=== PATIENT | male | born 1980 | race Caucasian/White ===

== ENCOUNTER 2017-02-21 19:46 | Emergency (ER) | payer BC ==
[~2017-02-21] VITALS: Ht 177.8 cm; Wt 98.2 kg
[2017-02-21 19:49] VITALS: TEMP 37; Ht 177.8 cm; Wt 98.2 kg
[2017-02-21] MEDS ORDERED: XYLOCAINE 1%/SOD BICARB 20 ML VIAL INFIL ONE (20:00)
[2017-02-21] MEDS ORDERED: BUPIVACAINE 0.5 % 5 MG/1 ML MPF 30ML VIAL INFIL ONE (20:00)
--- NOTE | 2017-02-21 20:28 | EMERGENCY ROOM VISIT NOTE ---
ED Visit Note First contact with patient: 19:54 CHIEF COMPLAINT: Left 3rd toe laceration HISTORY OF PRESENT ILLNESS: This 36-year-old male patient presents to the emergency department approximately 2 hours after cutting the left third toe on a steel pipe which was sticking up out of the ground. Patient states he was walking, wearing sandals, when his wrench toe hit a steel pipe, which had a sharp edge to it. Patient states it felt as if he stubbed his toe. Patient was just seen at urgent care, however due to the location of the injury in proximity to the nail, urgent care recommended patient seek care in the emergency department in case he needed the toenail removed. The bleeding has stopped. Denies weakness or numbness of the toe. The patient has full range of motion of the toe. The patient rates the pain as throbbing and 2/10. The patient denies any other injuries. The patient's tetanus shot is up to date. REVIEW OF SYSTEMS: A 6 system review of systems was completed with positives and pertinent negatives listed in the HPI. ALLERGIES: None MEDICATIONS: None PMH: Ocular cancer SOCIAL HISTORY: Patient lives locally with his family. He denies tobacco, alcohol, drug use. PHYSICAL EXAM: Vital Signs: Reviewed Nurse's notes, vital signs stable. GENERAL : 36-year-old male, in no acute distress, well developed, well nourished. SKIN : There is a 0.5 cm long laceration on the dorsal aspect of the third toe, just proximal to the nail, the nail from the nailbed slightly. There is no damage to the nail specifically. There is no foreign material in the wound and it looks clean. There is no active bleeding. No deep structures such as tendons, bones, or significant blood vessels are seen in the base of the wound. Extension and flexion of the toe is full and strong. Full range of motion of the ankle and other toes. Capillary refill less than 2 seconds. Normal sensation to light and sharp touch. EMERGENCY DEPARTMENT COURSE: I examined the patient. Verbal consent was obtained to perform the procedure. Using sterile technique the wound was cleansed with Betadine. 2 ml of 1% buffered lidocaine with 0.5% bupivocaine was used to perform a digital block to anesthetize the patient. The area was sterilely draped. Once the patient was anesthetized, the wound was copiously irrigated under pressure with sterile saline. The wound was explored and there were no deep structures injured. The laceration was repaired using 2 simple interrupted 4-0 nylon sutures through the nail, tacking the nail back to the toe. The patient tolerated the procedure well. Hemostasis was achieved. The area was cleaned with sterile saline and dressed with bacitracin ointment and bandage. The patient was discharged home in good condition. DIAGNOSIS: Toe laceration DIFFERENTIAL DIAGNOSIS: Toe laceration below the nail, nailbed laceration, toe fracture, toe contusion, and others. DISCHARGE INSTRUCTIONS & TREATMENT: Cephalexin(Keflex) 500mg: Take one pill four times daily for 10 days for your skin infection. All antibiotics can cause diarrhea. If this occurs and you feel worse or it does not resolve in 1-2 days follow up with your doctor or return to the Emergency Department as this could be signs of serious underlying problems. Any medication can cause an allergic reaction, stop the pills immediately and return to the ER for rash, hives, breathing difficulties, or swelling. You have received 2 sutures on your toe, through the toenail. These sutures are NOT dissolvable and WILL need to be removed by a health care provider in 12-14 days. You can return to the Emergency Department or contact your Primary Care Provider to have the sutures removed. Proper wound care is essential for adequate wound healing and infection prevention. You can shower and clean the wound with soap and water. Do not scour over the wound, pat dry with a towel. Do not submerse the wound (i.e. bathe or dish wash) until the sutures have been removed. You can use an antibiotic ointment with a dressing over the wound for the next 3-4 days. After this time you may leave the wound dry and open to the air. If crust develops over the wound you can use a Q-tip to apply a 1:1 peroxide:water solution to clean the wound. Look for signs of infection of the wound including: increased pain, swelling, foul discharge, streaking, or increased temperature. If any of these are noticed you should return to the Emergency Department for further assessment and treatment. As with any laceration you may have received nerve damage to the surrounding tissues. This damage may or may not be permanent. You should keep the area covered with sunscreen for the first 6 months to 1 year when at risk for exposure to help minimize scarring. You can also use scar reducing creams or Vitamin E oil to help minimize scarring. For pain control, you can use the following [id number]-[id number] medicines (if >12 yo): - Regular strength (325mg/tab) Tylenol (acetaminophen) 2 tabs every 4-6 hours as needed. Do not exceed 12 tablets in a 24 hour period. Avoid taking more than 4 grams (4000 mg) of Tylenol per day. This includes any other sources of acetaminophen you may take on a regular basis. - Regular strength (200 mg/tab) Advil (ibuprofen) 1-2 tabs every 4-6 hours as needed. Do not exceed a dose of 3200 mg per day. Return to the emergency department if your symptoms worsen despite treatment course outlined above. Current/Historical Medications No Active Prescriptions or Reported Meds Allergies Coded Allergies: No Known Allergies (Unverified , 02/21/17) Vital Signs Date Time Temp Pulse Resp B/P (MAP) Pulse Ox O2 Delivery O2 Flow Rate FiO2 02/21/17 19:49 37.0 72 18 138/94 95 Room Air Departure Information Impression Primary Impression: Laceration of toe of left foot with damage to nail Dispostion Home / Self-Care Condition GOOD Prescriptions Cephalexin Monohydrate (Keflex) 500 Mg Cap 500 MG PO QID for 10 Days, #40 CAP Prov: Wilma Robles PA-C 02/21/17 Referrals No Doctor, Assigned (PCP) Patient Instructions My [facility] Additional Instructions Cephalexin(Keflex) 500mg: Take one pill four times daily for 10 days for your skin infection. All antibiotics can cause diarrhea. If this occurs and you feel worse or it does not resolve in 1-2 days follow up with your doctor or return to the Emergency Department as this could be signs of serious underlying problems. Any medication can cause an allergic reaction, stop the pills immediately and return to the ER for rash, hives, breathing difficulties, or swelling. You have received 2 sutures on your toe, through the toenail. These sutures are NOT dissolvable and WILL need to be removed by a health care provider in 12-14 days. You can return to the Emergency Department or contact your Primary Care Provider to have the sutures removed. Proper wound care is essential for adequate wound healing and infection prevention. You can shower and clean the wound with soap and water. Do not scour over the wound, pat dry with a towel. Do not submerse the wound (i.e. bathe or dish wash) until the sutures have been removed. You can use an antibiotic ointment with a dressing over the wound for the next 3-4 days. After this time you may leave the wound dry and open to the air. If crust develops over the wound you can use a Q-tip to apply a 1:1 peroxide:water solution to clean the wound. Look for signs of infection of the wound including: increased pain, swelling, foul discharge, streaking, or increased temperature. If any of these are noticed you should return to the Emergency Department for further assessment and treatment. As with any laceration you may have received nerve damage to the surrounding tissues. This damage may or may not be permanent. You should keep the area covered with sunscreen for the first 6 months to 1 year when at risk for exposure to help minimize scarring. You can also use scar reducing creams or Vitamin E oil to help minimize scarring. For pain control, you can use the following [id number]-wxkjnwp medicines (if >12 yo): - Regular strength (325mg/tab) Tylenol (acetaminophen) 2 tabs every 4-6 hours as needed. Do not exceed 12 tablets in a 24 hour period. Avoid taking more than 4 grams (4000 mg) of Tylenol per day. This includes any other sources of acetaminophen you may take on a regular basis. - Regular strength (200 mg/tab) Advil (ibuprofen) 1-2 tabs every 4-6 hours as needed. Do not exceed a dose of 3200 mg per day. Return to the emergency department if your symptoms worsen despite treatment course outlined above. Problem Qualifiers Primary Impression: Laceration of toe of left foot with damage to nail Encounter type: initial encounter Toe: lesser toe Foreign body presence: without foreign body Qualified Codes: S91.215A - Laceration without foreign body of left lesser toe(s) with damage to nail, initial encounter
[2017-02-21] MEDS ORDERED: CEPH500C PO (20:52)
[2017-02-21 20:54] VITALS: BP 130/94; PULSE 67; O2SAT 95
[2017-02-21] MEDS ORDERED: CEPHALEXIN 500MG HOME PACK 1 EA BTL PO ONE (21:00)
== END 2017-02-21 21:00 | disposition home or self-care (01) ==
LOC: C.EDB 19:47 → C.EDD 21:00
DX: S91.215A Laceration without foreign body of left lesser toe(s) with damage to nail, initial encounter (principal); W22.8XXA Striking against or struck by other objects, initial encounter; Z85.9 Personal history of malignant neoplasm, unspecified

== ENCOUNTER 2017-06-07 16:31 | Emergency (ER) | payer BC ==
[~2017-06-07] VITALS: Ht 177.8 cm; Wt 81.9 kg
[2017-06-07 16:42] VITALS: Ht 177.8 cm; Wt 81.9 kg
[2017-06-07] MEDS ORDERED: SODIUM CHLORIDE 0.9% 1000ML 1,000 ML IV STA (17:38)
[2017-06-07 17:55] LABS: URINE APPEARANCE CLEAR (CLEAR); URINE BILIRUBIN NEG (NEG); URINE COLOR YELLOW; URINE NITRITE NEG (NEG); URINE PH 6.5 (4.5-7.5); UROBILINOGEN NEG (NEG); ZZUR CULT IF INDIC CLEAN CATCH NO
[2017-06-07 17:56] LABS: BASO % 0.5 %; BASO ABS # 0.02 K/uL (0-0.2); COMPLETE YES; HEMATOCRIT 41.5 % (42-52); IG% 0.2 %; LYMPH % 9.7 %; LYMPH ABS # 0.42 K/uL (1.2-3.4); MEAN CELL VOLUME 81.9 fL (80-100); MEAN CORPUSCULAR HEMOGLOBIN 29.2 pg (25-34); MEAN CORPUSCULAR HGB CONC 35.7 g/dl (32-36); MEAN PLATELET VOLUME 10.7 fL (7.4-10.4); MONO % 8.1 %; NEUT % 81.5 %; PLATELET COUNT 136 K/uL (130-400); RED BLOOD COUNT 5.07 M/uL (4.7-6.1); WHITE BLOOD COUNT 4.33 K/uL (4.8-10.8)
[2017-06-07 17:57] LABS: MANUAL MICROSCOPIC REQUIRED? NO; REVIEW REQ? NO
[2017-06-07 18:10] LABS: ALT/SGPT 18 U/L (12-78); BLOOD UREA NITROGEN 11 mg/dl (7-18); BUN/CREATININE RATIO 8.9 (10-20); CALCIUM 8.8 mg/dl (8.5-10.1); CARBON DIOXIDE 25 mmol/L (21-32); CHLORIDE 103 mmol/L (98-107); GLUCOSE 102 mg/dl (70-99); POTASSIUM 3.8 mmol/L (3.5-5.1); SODIUM 136 mmol/L (136-145)
[2017-06-07 18:14] LABS: ALKALINE PHOSPHATASE 83 U/L (45-117); AST/SGOT 37 U/L (15-37)
[2017-06-07 18:40] LABS: LYME DISEASE AB IGG NEG (NEG); LYME DISEASE AB IGM NEG (NEG)
[2017-06-07 19:13] VITALS: TEMP 37.5
--- NOTE | 2017-06-07 19:16 | DIAGNOSTIC IMAGING REPORT ---
CHEST 2 VIEWS ROUTINE CLINICAL HISTORY: 36 years-old Male presenting with fever, chest tightness. TECHNIQUE: PA and lateral views of the chest were obtained. COMPARISON: None. FINDINGS: Cardiomediastinal silhouette normal. Lungs and pleural spaces clear. Osseous structures normal. Upper abdomen normal. IMPRESSION: 1. No acute cardiopulmonary disease. Electronically signed by: Fabrizio José M.D. 06/07/2017 7:14 PM Dictated Date/Time: 06/07/2017 7:12 PM
--- NOTE | 2017-06-07 19:28 | EMERGENCY ROOM VISIT NOTE ---
History First contact with patient: 17:24 Chief Complaint: FEVER Stated Complaint: FEVER/CHEST PAIN History of Present Illness The patient is a 36 year old male who presents to the Emergency Room with complaints of a fever. The patient states that he has had a fever for the past 2 days. His highest temperature was 103F today. He reports that he has had a heavy feeling in the center of his chest. He states it is a slight pain. He reports he has been fatigued and his urine has been dark in color. He has been urinating slightly more frequently than usual due to increased fluid intake. The patient denies any other symptoms. He denies any cough, shortness of breath , sore throat, earaches, abdominal pain, nausea, vomiting, or changes in bowel movements. He denies any sick contacts. He has been taking Tylenol and ibuprofen with good relief of his fevers. He denies any recent tick bites. 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 He follows with cardiology yearly for this and recently had a normal echo. Review of Systems A complete 10 point review of systems was reviewed with the patient with pertinent positives and negatives as per history of present illness. All else were negative. Social History Smoking Status: Never Smoker Current/Historical Medications No Active Prescriptions or Reported Meds Physical Exam Vital Signs Date Time Temp Pulse Resp B/P (MAP) Pulse Ox O2 Delivery O2 Flow Rate FiO2 06/07/17 19:46 77 18 148/90 99 06/07/17 19:13 37.5 72 18 146/91 98 Room Air 06/07/17 19:07 72 06/07/17 18:35 76 18 131/75 98 Room Air 06/07/17 16:42 37.1 98 18 140/93 96 Room Air Physical Exam VITALS: Vitals are noted on the nurse's note and reviewed by myself. Vital signs stable. GENERAL: This is a 36-year-old male, in no acute distress, nondiaphoretic, well- developed well-nourished. SKIN: The skin was without rashes. EARS: External auditory canals clear, tympanic membranes pearly mcmullen without erythema or effusion bilaterally. EYES: Pupils equal round and reactive to light and accommodation. Conjunctivae without injection, sclerae without icterus. Extraocular movements intact. NOSE: Patent, turbinates without inflammation or discharge. No sinus tenderness. MOUTH: Mucous membranes moist. Tonsils are not enlarged. Pharynx without erythema or exudate. NECK: Supple without nuchal rigidity. No lymphadenopathy. HEART: Regular rate and rhythm without murmurs gallops or rubs. LUNGS: Clear to auscultation bilaterally without wheezes, rales or rhonchi. ABDOMEN: Positive bowel sounds x 4. Soft, nontender to palpation. NEURO: Patient was alert and oriented to person place and time. Medical Decision & Procedures ER Provider Diagnostic Interpretation: CHEST 2 VIEWS ROUTINE CLINICAL HISTORY: 36 years-old Male presenting with fever, chest tightness. TECHNIQUE: PA and lateral views of the chest were obtained. COMPARISON: None. FINDINGS: Cardiomediastinal silhouette normal. Lungs and pleural spaces clear. Osseous structures normal. Upper abdomen normal. IMPRESSION: 1. No acute cardiopulmonary disease. Laboratory Results 06/07/17 17:30 Red Blood Count 5.07, Mean Corpuscular Volume 81.9, Mean Corpuscular Hemoglobin 29.2, Mean Corpuscular Hemoglobin Concent 35.7, Mean Platelet Volume 10.7, Neutrophils (%) (Auto) 81.5, Lymphocytes (%) (Auto) 9.7, Monocytes (%) (Auto) 8.1, Eosinophils (%) (Auto) 0.0, Basophils (%) (Auto) 0.5, Neutrophils # (Auto) 3.53, Lymphocytes # (Auto) 0.42, Monocytes # (Auto) 0.35, Eosinophils # (Auto) 0.00, Basophils # (Auto) 0.02 06/07/17 17:30 Test 06/07/17 17:30 06/07/17 17:45 06/07/17 17:54 White Blood Count 4.33 K/uL (4.8-10.8) Red Blood Count 5.07 M/uL (4.7-6.1) Hemoglobin 14.8 g/dL (14.0-18.0) Hematocrit 41.5 % (42-52) Mean Corpuscular Volume 81.9 fL (80-100) Mean Corpuscular Hemoglobin 29.2 pg (25-34) Mean Corpuscular Hemoglobin Concent 35.7 g/dl (32-36) Platelet Count 136 K/uL (130-400) Mean Platelet Volume 10.7 fL (7.4-10.4) Neutrophils (%) (Auto) 81.5 % Lymphocytes (%) (Auto) 9.7 % Monocytes (%) (Auto) 8.1 % Eosinophils (%) (Auto) 0.0 % Basophils (%) (Auto) 0.5 % Neutrophils # (Auto) 3.53 K/uL (1.4-6.5) Lymphocytes # (Auto) 0.42 K/uL (1.2-3.4) Monocytes # (Auto) 0.35 K/uL (0.11-0.59) Eosinophils # (Auto) 0.00 K/uL (0-0.5) Basophils # (Auto) 0.02 K/uL (0-0.2) RDW Standard Deviation 38.8 fL (36.4-46.3) RDW Coefficient of Variation 12.9 % (11.5-14.5) Immature Granulocyte % (Auto) 0.2 % Immature Granulocyte # (Auto) 0.01 K/uL (0.00-0.02) Anion Gap 9.0 mmol/L (3-11) Est Creatinine Clear Calc Drug Dose 86.2 ml/min Estimated GFR () 88.4 Estimated GFR (Non- 76.3 BUN/Creatinine Ratio 8.9 (10-20) Calcium Level 8.8 mg/dl (8.5-10.1) Total Bilirubin 1.1 mg/dl (0.2-1) Aspartate Amino Transf (AST/SGOT) 37 U/L (15-37) Alanine Aminotransferase (ALT/SGPT) 18 U/L (12-78) Alkaline Phosphatase 83 U/L (45-117) Total Creatine Kinase 78 U/L (39-308) Troponin I < 0.015 ng/ml (0-0.045) Total Protein 7.9 gm/dl (6.4-8.2) Albumin 4.0 gm/dl (3.4-5.0) Globulin 3.9 gm/dl (2.5-4.0) Albumin/Globulin Ratio 1.0 (0.9-2) Lyme Disease IgG Antibody NEG (NEG) Lyme Disease IgM Antibody NEG (NEG) Monoscreen NEG (NEG) Urine Color YELLOW Urine Appearance CLEAR (CLEAR) Urine pH 6.5 (4.5-7.5) Urine Specific [place] 1.020 (1.000-1.030) Urine Protein NEG (NEG) Urine Glucose (UA) NEG (NEG) Urine Ketones NEG (NEG) Urine Occult Blood NEG (NEG) Urine Nitrite NEG (NEG) Urine Bilirubin NEG (NEG) Urine Urobilinogen NEG (NEG) Urine Leukocyte Esterase NEG (NEG) Influenza Type A Antigen Neg for Influ A (NEG) Influenza Type B Antigen Neg for Influ B (NEG) Medications Administered Medications (Trade) Dose Ordered Sig/Ever Route Start Time Stop Time Status Last Admin Dose Admin Sodium Chloride 1,000 ml @ 999 mls/hr Q1H1M STAT IV 06/07/17 17:38 06/07/17 18:38 DC 06/07/17 17:58 999 MLS/HR ED Course The patient was evaluated as above. Labs were drawn and IV access was obtained. Patient was medicated with 1 L normal saline solution. Patient was reevaluated and findings were discussed. Discharge instructions were reviewed with the patient. The patient verbalized understanding of my assessment and treatment plan and was discharged home in good condition. Medical Decision Differential diagnosis includes influenza, mononucleosis, Lyme disease, viral illness, pneumonia, strep pharyngitis, pericarditis, among others. The patient is a 36-year-old male who presents today complaining of a fever. The patient does not have any significant symptoms. He does complain of some mild chest tightness. EKG shows a normal sinus rhythm with no ischemic findings. Labs revealed a very mild leukopenia and minimal elevation of bilirubin. Monospot, Lyme serology and influenza testing was all negative. Chest x-ray was not evident of pneumonia. Patient was treated with IV fluids. Vital signs were within normal limits. Patient is afebrile here and it seems that his fever has been well-controlled with Tylenol and ibuprofen. I feel that his workup likely represents a viral illness. He was advised to continue conservative treatments at home and follow-up with his primary care provider as needed. Based on the patient's presentation and work up, I feel the patient is stable for outpatient treatment. The patient was educated to return to the emergency department for any worsening of their current condition or new/concerning symptoms. He will follow up with his PCP. Medication Reconcilliation Current Medication List: was personally reviewed by me Blood Pressure Screening Patient's blood pressure: Normal blood pressure Impression Primary Impression: Acute febrile illness Departure Information Dispostion Home / Self-Care Condition GOOD Prescriptions No Active Prescriptions or Reported Meds Referrals Lori Hankins M.D. (PCP) Patient Instructions My [facility] Additional Instructions For pain/fever control, you can use the following [id number] medicines ( if >12 yo): - Regular strength (325mg/tab) Tylenol (acetaminophen) 2 tabs every 4-6 hours as needed. Do not exceed 12 tablets in a 24 hour period. Avoid taking more than 4 grams (4000 mg) of Tylenol per day. This includes any other sources of acetaminophen you may take on a regular basis. - Regular strength (200 mg/tab) Advil (ibuprofen) 3-4 tabs every 4-6 hours as needed. Do not exceed a dose of 3200 mg per day. Rest and drink plenty of fluids. Follow-up with your primary care provider this week. Return to the emergency department with any neck stiffness, vomiting, abdominal pain, or any worsening or new/concerning symptoms.
[2017-06-07 19:46] VITALS: BP 148/90; PULSE 77; O2SAT 99
== END 2017-06-07 19:50 | disposition home or self-care (01) ==
LOC: C.EDB 16:32 → C.EDA 19:50
DX: R50.9 Fever, unspecified (principal); Z85.820 Personal history of malignant melanoma of skin

== ENCOUNTER 2022-02-27 08:26 | Inpatient (IN) ==
[2022-02-27] MEDS ORDERED: ONDANSETRON INJ 2 MG/ML 2 ML VIAL IV STA (08:46)
[2022-02-27] MEDS: HYDROmorphone INJ 0.5 MG/0.5 ML SYR IV PRN ×4 (08:59→20:06)
--- NOTE | 2022-02-27 09:13 | Emergency Department Note ---
Impression & Plan Intractable back pain, Sciatic leg pain ED Provider Note INFORMANT: Patient and ED PROVIDER(S): Neo Turner MD CHIEF COMPLAINT: Back pain PLAN: Disposition: Admitted Condition: Good Outpatient prescription management: none Referral: None MEDICAL DECISION MAKING: Patient presented because of worsening back pain. He is scheduled for surgery tomorrow. An IV was established. Blood work was obtained. This was unremarkable. Patient was treated with IV Dilaudid and Zofran. He did note over 50% reduction in pain on reassessment. I did consult with his surgeon, Dr. Santiago. He is aware of the patient's problem and will admit him. I discussed if he needed any additional imaging and he did not ask for any. COVID testing was performed for admission in the standard fashion. Patient was informed. He was admitted for further management. Triage Nursing notes reviewed and agree them. Vital Signs: reviewed and remarkable for hypertension Differential diagnosis: Musculoskeletal, disc herniation, fracture, metastatic disease, cord compression, discitis, sciatica, cauda equina, infection, aortic disease, renal colic, gastrointestinal, as well as other pathologies. Diagnostics interpreted by me: ECG: none Cardiac Monitoring: Cardiac monitoring ordered by me: The patient was placed on continuous cardiac monitoring and observed. It revealed a normal sinus rhythm at 66 beats per minute without ectopy or evidence of dysrhythmia. Imaging studies: Deferred as above. HPI: The patient is a 41 year old male who presents to the Emergency Room with complaints of severe low back pain. Patient has a known herniated disc on the left side at L5-S1. He is to have surgery tomorrow by Dr. Santiago. He notes worsening over the last [address] Santiago and despite using his tramadol and Percocet at home is having severe 12 out of 10 pain. Pain is worse with movement or lifting the leg. He also feels more weak. Patient also notes having some numbness that has spread to the right proximal thigh. Pt denies trauma, LOC, headache, neck pain, fevers, chills, malaise, night sweats, weight loss, history of malignancy, chest pain, breathing difficulties, abdominal pain, saddle paresthesias, bowel or bladder dysfunction, urinary symptoms, or other complaints. ROS: See above HPI for pertinent positives & negatives. A total of 10 systems reviewed and were otherwise negative. PAST MEDICAL HISTORY:See Below , herniated disc PAST SURGICAL HISTORY:See Below, FAMILY HISTORY:See Below SOCIAL HISTORY:See Below, HOME MEDICATIONS:See Below ALLERGIES:See Below VITALS:See Below PHYSICAL EXAMINATION: GENERAL: Awake, alert, uncomfortable appearing, in no distress HENT: Normocephalic, atraumatic. Oropharynx unremarkable. EYES: Normal conjunctiva. Sclera non-icteric. NECK: Inspection normal. Non-tender. Supple. No nuchal rigidity. FROM. No masses. RESPIRATORY: Clear to auscultation. No wheezes. No rales. Normal respiratory effort. CARDIAC: Normal rate. Normal rhythm. No murmurs. No rubs. Extremities warm and well perfused. Pulses equal. No JVD. GI: Soft, non-distended. No tenderness to palpation. No rebound or guarding. No masses. RECTAL: Deferred. MUSCULOSKELETAL: Atraumatic. Chest examination reveals no tenderness. The back is symmetrical on inspection without obvious abnormality. There is no CVA tenderness to palpation. No joint edema. LOWER EXTREMITIES: Calves are equal size bilaterally and non-tender. No edema. No discoloration. NEURO: Normal sensorium. Subjective tingling in the right thigh but no other sensory or motor deficits noted. no saddle anesthesia. Positive left and right straight leg raise. SKIN: No rash or jaundice noted. Neo Turner MD Past Med/Surg History Medical History (Updated 02/27/22 @ 10:30 by Evaristo Santiago DO) Cancer Ocular s/p surgical intervention Radiation plaque therapy done (2011) Diverticula, colon History of COVID-19 Dx 05/2021 Symptoms at time: fatigue, cough > resolved Lower back pain Ventricular bigeminy Intermittent remote dx several years ago with no recent recurrence (incidental finding, asymptomatic), discharged from cardio- advised to f/u PRN, no current issues Surgical History H/O colonoscopy H/O endoscopy H/O vasectomy History of tonsillectomy and adenoidectomy Hx of appendectomy Family History Other Family history non-contributory Social History Smoking Status: Never smoker Second Hand Exposure: No; Hx Alcohol Use: No Hx Substance Use: No Preferred Language: [place] Communication Ability: Effective Helper/Driver Required: No Beliefs That Will Affect Care: None Current Living Situation: Spouse and Family Feels Safe at Home: Yes Assistive Devices: Glasses and Hearing Aid - Bilateral Allergies Allergies Allergy/AdvReac Type Severity Reaction Status Date / Time No Known Allergies Allergy Verified 02/13/22 13:43 Home Meds Home Medications Medication Instructions Recorded Confirmed lorazepam 0.5 mg tablet (Ativan) 0.5 mg PO DAILY PRN 03/14/19 02/27/22 tramadol 50 mg tablet 50 mg PO BID 02/13/22 02/27/22 gabapentin 300 mg capsule 300 mg PO TID 02/27/22 02/27/22 oxycodone-acetaminophen 5 mg-325 1 tab PO Q6 PRN 02/27/22 02/27/22 mg tablet Results & Data (ED) Vital Signs Vital Signs - 24 hr 02/27/22 08:30 02/27/22 08:52 02/27/22 10:27 Temperature 36.5 C Temperature Source Temporal Artery Scan Pulse Rate 92 H Pulse Rate [Right Finger] 66 67 Pulse Rhythm [Right Finger] Regular Regular Pulse Strength [Right Finger] Normal Normal Respiratory Rate 16 17 18 Respiratory Effort / Characteristics Non-Labored Spontaneous Non-Labored Spontaneous Respiratory Depth Normal Normal Respiratory Pattern Regular Blood Pressure 146/94 H Blood Pressure [Left Arm] 176/111 H Blood Pressure Mean 111 Blood Pressure Mean [Left Arm] 132 Blood Pressure Position [Left Arm] Lying Pulse Oximetry 98 99 97 Oxygen Delivery Method Room Air Room Air Room Air Sepsis Recent Fever Within 48 Hours No Sepsis New/Unexplained Change in Mental Status No Sepsis Action Taken by Nursing No Action Required Laboratory Data Result diagrams: 02/27/22 08:55 02/27/22 08:55 Lab Results 02/27/22 02/27/22 02/27/22 Range/Units 08:55 08:55 10:13 WBC 7.47 (4.8-10.8) K/uL RBC 5.34 (4.7-6.1) M/uL Hgb 16.1 (14.0-18.0) g/dL Hct 44.9 (42-52) % MCV 84.1 (80-100) fL MCH 30.1 (25-34) pg MCHC 35.9 (32-36) g/dL RDW Std Deviation 38.1 (36.4-46.3) fL RDW Coeff of John 12.5 (11.5-14.5) % Plt Count 233 (130-400) K/uL MPV 10.2 (7.4-10.4) fL Immature Gran % (Auto) 0.1 % Neut % (Auto) 75.1 % Lymph % (Auto) 16.6 % [place] % (Auto) 7.0 % Eos % (Auto) 0.9 % Baso % (Auto) 0.3 % Neut # (Auto) 5.61 (1.4-6.5) K/uL Lymph # (Auto) 1.24 (1.2-3.4) K/uL [place] # (Auto) 0.52 (0.11-0.59) K/uL Eos # (Auto) 0.07 (0-0.5) K/uL Baso # (Auto) 0.02 (0-0.2) K/uL Immature Gran # (Auto) 0.01 (0.00-0.02) K/uL Sodium 139 (136-145) mmol/L Potassium 3.8 (3.5-5.1) mmol/L Chloride 103 (98-107) mmol/L Carbon Dioxide 29 (21-32) mmol/L Anion Gap 7 (3-11) BUN 18 (6-23) mg/dl Creatinine 1.07 (0.6-1.4) mg/dl Est Cr Clr Drug Dosing 102.8 ml/min Est GFR ( Amer) 98.0 ml/min Est GFR (Non-Af Amer) 84.6 ml/min BUN/Creatinine Ratio 16.8 (10-20) Glucose 95 (70-99(Fasting)) mg/dl Calcium 9.5 (8.5-10.1) mg/dl Total Bilirubin 1.0 (0.2-1.0) mg/dl AST 15 (13-39) U/L ALT 6 L (7-52) U/L Alkaline Phosphatase 51 (34-104) U/L Total Protein 7.2 (6.0-8.3) gm/dl Albumin 4.5 (3.4-5.0) gm/dl Globulin 2.7 (2.5-4.0) gm/dl Albumin/Globulin Ratio 1.7 (0.9-2) SARS-CoV-2, RNA, NAAT NEGATIVE (NEGATIVE) Administered Medications Hydromorphone HCl (Hydromorphone Inj 0.5 Mg/0.5 Ml Syr) 0.5 mg IV Q15M PRN PRN Reason: Pain Stop: 03/13/22 08:45 Last Admin: 02/27/22 08:59 Dose: 0.5 mg Documented by: [id number] Discontinued Medications Ondansetron HCl (Ondansetron Inj 2 Mg/Ml 2 Ml Vial) 4 mg IV NOW STA Stop: 02/27/22 08:47 Last Admin: 02/27/22 08:59 Dose: 4 mg Documented by: [id number] Discharge Plan Visit Data Chief Complaint: Back Injury/Pain Stated Complaint: BACK PAIN ED Provider: Neo Turner Discharge Problem: Intractable back pain, Sciatic leg pain Forms Stand Alone Forms: [facility] Prescriptions Prescriptions: No Action lorazepam [Ativan] 0.5 mg Tablet 0.5 mg PO DAILY PRN (Reason: Anxiety) RF: 0 tramadol 50 mg Tablet 50 mg PO BID RF: 0 oxycodone-acetaminophen 5-325 mg tablet 1 tab PO Q6 PRN (Reason: Pain) RF: 0 gabapentin 300 mg capsule 300 mg PO TID RF: 0 Referrals Referrals: Lori Hankins MD [Primary Care Provider] -
[2022-02-27 09:29] LABS: Basophils # (auto) 0.02 K/uL (0-0.2); Basophils % (auto) 0.3 %; Eosinophils # (auto) 0.07 K/uL (0-0.5); Eosinophils % (auto) 0.9 %; Hematocrit (blood only) 44.9 % (42-52); Hemoglobin 16.1 g/dL (14.0-18.0); Immature Granulocytes # (auto) 0.01 K/uL (0.00-0.02); Immature Granulocytes % (auto) 0.1 %; Lymphocytes # (auto) 1.24 K/uL (1.2-3.4); Lymphocytes % (auto) 16.6 %; Mean Corpuscular Hemoglobin 30.1 pg (25-34); Mean Corpuscular Hgb Conc 35.9 g/dL (32-36); Mean Corpuscular Volume 84.1 fL (80-100); Mean Platelet Volume 10.2 fL (7.4-10.4); Monocytes # (auto) 0.52 K/uL (0.11-0.59); Neutrophils # (auto) 5.61 K/uL (1.4-6.5); Neutrophils % (auto) 75.1 %; Platelet Count 233 K/uL (130-400); RDW Coefficient of Variation 12.5 % (11.5-14.5); RDW Standard Deviation 38.1 fL (36.4-46.3); Red Blood Count 5.34 M/uL (4.7-6.1); White Blood Count 7.47 K/uL (4.8-10.8)
[2022-02-27 09:34] LABS: Albumin Globulin Ratio 1.7 (0.9-2); Albumin Level 4.5 gm/dl (3.4-5.0); BUN Creatinine Ratio 16.8 (10-20); Calcium 9.5 mg/dl (8.5-10.1); Creatinine Clr Calc Pharmacy 102.8 ml/min; Est GFR (Non-African American) 84.6 ml/min; Globulin 2.7 gm/dl (2.5-4.0); Potassium 3.8 mmol/L (3.5-5.1); Total Protein 7.2 gm/dl (6.0-8.3)
--- NOTE | 2022-02-27 10:32 | History & Physical Report ---
Date of Service February 27, 2022 Assessment & Plan (1) Lumbar disc herniation with radiculopathy: Plan: Assessment lumbar radiculopathy secondary to disc herniation and neuroforaminal disease. Plan at this time he is had a significant decline in status. I am recommending an urgent MRI of the lumbar spine particular in light of his urinary retention. He also presents with neurodeficit that has been progressive. I will make him n.p.o. after midnight for surgery. Surgery most likely would require lumbar decompression and fusion L5-S1. This would allow me to adequately address the neuroforaminal disease and neural compression from the disc herniation and retrolisthesis. Risk-benefit pros cons alternatives were outlined in detail with the patient. History of Present Illness Chief Complaint: Severe left leg pain with weakness Primary Care Provider: Lori Hankins MD This is a 41-year-old male that presents with marked decline in status over the past week. He does have known lumbar disc herniation and neuroforaminal disease at L5-S1 with a left-sided radiculopathy. He was potentially scheduled for jake olena. He states for the past week he has been unable to ambulate and is essentially been bedridden. Is been unable to work. Pain is described involving the bilateral buttocks radiating to the groin. Extensive left lower extremity to left lateral foot. He notes weakness with weightbearing and ambulation affecting left lower extremity. He describes urinary retention that has been present over the past week. He denies any significant trauma fall or event over the past several weeks. His pain is markedly uncontrolled at home. Allergies Allergy/AdvReac Type Severity Reaction Status Date / Time No Known Allergies Allergy Verified 02/13/22 13:43 Home Medications Medication Instructions Recorded Confirmed Type lorazepam 0.5 mg tablet (Ativan) 0.5 mg PO DAILY PRN 03/14/19 02/13/22 History gabapentin 300 mg tablet 300 mg PO TID PRN 02/13/22 02/13/22 History tramadol 50 mg tablet 50 mg PO BID 02/13/22 02/13/22 History Past Med/Surg History Medical History (Updated 02/27/22 @ 10:30 by Evaristo Santiago DO) Cancer Ocular s/p surgical intervention Radiation plaque therapy done (2011) Diverticula, colon History of COVID-19 Dx 05/2021 Symptoms at time: fatigue, cough > resolved Lower back pain Ventricular bigeminy Intermittent remote dx several years ago with no recent recurrence (incidental finding, asymptomatic), discharged from cardio- advised to f/u PRN, no current issues Surgical History H/O colonoscopy H/O endoscopy H/O vasectomy History of tonsillectomy and adenoidectomy Hx of appendectomy Family History Other Family history non-contributory Social History Smoking Status: Never smoker Second Hand Exposure: No; Hx Alcohol Use: No Hx Substance Use: No Preferred Language: Arabic Communication Ability: Effective Fur Blower Operator Required: No Beliefs That Will Affect Care: None Current Living Situation: Spouse and Family Feels Safe at Home: Yes Assistive Devices: Glasses and Hearing Aid - Bilateral Physical Exam Physical Exam: On exam is most comfortable in supine position. He does have sensory deficits to cold and light touch to the left lower extremity compared to the right. Is markedly positive straight leg raise on the left with a positive Lasegue's maneuver. There is contralateral straight leg raise on the right. He has a 4-/5 left plantar flexion dorsiflexion compared to 5 or 5 on the right. Quadriceps are symmetric. D10 reflexes diminished. Results & Data Results & Data ([facility]) Vital Signs (Past 12 Hours) Vital Signs Temp Pulse Pulse Resp BP BP Pulse Ox 02/27/22 08:52 66 17 176/111 H 99 02/27/22 08:30 36.5 C 92 H 16 146/94 H 98 Code Status & VTE Plan VTE Prophylaxis Plan VTE Prophylaxis will be ordered: Yes
--- NOTE | 2022-02-27 13:05 | Magnetic Resonance Report ---
MRI OF THE LUMBAR SPINE WITHOUT CONTRAST CLINICAL HISTORY: Left leg pain and weakness, urinary retention COMPARISON STUDY: No previous studies for comparison. TECHNIQUE: Utilizing a 1.5 Nelly magnet and dedicated coil, multiplanar, multiecho imaging of the levi mbar spine was performed without IV contrast. FINDINGS: For purposes of numbering on this exam, the L5-S1 disc space is assigned to axial image 28 of 30. Ali gnment of the lumbar spine is anatomic. Vertebral body heights are maintained. There is no marrow rep lacement. There is no intracanalicular mass or fluid collection. Conus terminates at the upper L1 lev el. Paravertebral soft tissues are unremarkable. Discogenic changes at the L5-S1 level are noted. L1-2: The central canal and neural foramen are patent. L2-3: The central canal and neural foramen are patent. L3-4: The central canal and neural foramen are patent. L4-5: There is mild desiccation of the disc. Central canal and neural foramen are patent. L5-S1: There is moderate disc space narrowing. Note is made of a 9 x 7 x 6 mm left paracentral disc e xtrusion which results in severe narrowing of the left lateral recess with posterior displacement of the descending left S1 nerve root. Moderate to severe narrowing of the left neural foramen is noted. There is mild narrowing of the right neural foramen. No central canal stenosis. IMPRESSION: 9 x 7 x 6 mm left paracentral disc extrusion at L5-S1 that results in severe narrowing of the left lateral recess with posterior displacement of the descending left S1 nerve root. This could be correlated with left S1 radiculopathy. In addition, moderate to severe narrowing of the left neur al foramen at this level. ACT 112: Negative or not required by law. Electronically signed by: Ken Escobar M.D. 02/27/2022 1:04 PM
[2022-02-27] MEDS ORDERED: ACETAMINOPHEN 500 MG TAB PO PRN (13:53)
[2022-02-27] MEDS ORDERED: ONDANSETRON INJ 2 MG/ML 2 ML VIAL IV PRN (13:53)
[2022-02-27] MEDS ORDERED: hydrOXYzine HCl 25 MG TAB PO PRN (13:53)
[2022-02-27] MEDS ORDERED: LORazepam 0.5 MG in SYRINGE 0.25 ML IV PRN (13:53)
[2022-02-27] MEDS ORDERED: ACETAMINOPHEN 1,000 MG/100 ML VIAL IV PRN (13:53)
[2022-02-27] MEDS ORDERED: oxyCODONE HCL IR 5 MG TAB (IMMEDIATE RELEASE) PO PRN (13:53)
[2022-02-27] MEDS ORDERED: traMADol HCL 50 MG TABLET PO PRN (13:53)
[2022-02-27] MEDS ORDERED: NALOXONE HCL 0.4 MG/1 ML VIAL/CARP IV PRN (13:53)
[2022-02-27] MEDS ORDERED: HYDROmorphone INJ 1 MG/ML SYRINGE IV PRN (13:53)
[2022-02-27] MEDS ORDERED: PROMETHAZINE HCL 12.5 MG in SODIUM CHLORIDE 0.9% 50 ML IV PRN (13:53)
[2022-02-27] MEDS ORDERED: ONDANSETRON 4 MG OD TAB PO PRN (13:53)
[2022-02-27] MEDS ORDERED: METOCLOPRAMIDE HCL INJ 5 MG/ML 2 ML VIAL IV PRN (13:53)
[2022-02-27] MEDS ORDERED: LORazepam 0.5 MG TAB PO PRN (13:53)
[2022-02-27] MEDS ORDERED: GABAPENTIN 300 MG CAP PO PRN (13:57)
[2022-02-27] MEDS: LACTATED RINGER'S 1,000 ML IV SCH (15:58)
[2022-02-27 21:07] LABS: Appearance Urine Clear (Clear); Bilirubin Urine Negative (Negative); Blood Urine Negative (Negative); Color Urine Yellow; Glucose Urine UA Negative (Negative); Ketones Urine Negative (Negative); Leukocyte Esterase Urine Negative (Negative); Nitrite Urine Negative (Negative); Protein Urine Negative (Negative); Specific Gravity Urine 1.013 (1.000-1.030); Urobilinogen Urine Negative (Negative)
[2022-02-28] MEDS: HYDROmorphone INJ 0.5 MG/0.5 ML SYR IV PRN ×5 (00:03→20:18)
[2022-02-28] MEDS: LACTATED RINGER'S 1,000 ML IV SCH ×4 (00:04→22:21)
[2022-02-28] MEDS ORDERED: ceFAZolin 2000MG 2,000 MG/15 ML SYR IV SCH (06:00)
--- NOTE | 2022-02-28 07:40 | History & Physical Bridge Note ---
Date of Service February 28, 2022 History & Physical Bridge Note I have examined the patient, reviewed the History & Physical and in the interval since the performance of the History & Physical I have noted the following changes of clinical significance: MRI of the lumbar spine demonstrates worsening of the disc herniation L5-S1 with severe neuroforaminal disease on the left. Again he would require aggressive facetectomy to adequately address the neural foraminal compression as well as ability to address the disc herniation. This would create iatrogenic instability and require fusion. In light of his neurologic decline and severe pain recommending emergent decompression fusion L5-S1.
[2022-02-28] MEDS ORDERED: ROCURONIUM BROMIDE 10 MG/ML 5 ML VIAL IV ONE ×2 (11:57)
[2022-02-28] MEDS ORDERED: PROPOFOL IV EMULSION 10 MG/ML 20 ML VIAL IV ONE (11:57)
[2022-02-28] MEDS ORDERED: ceFAZolin 2,000 MG/15 ML IV PUSH IV ONE (11:57)
[2022-02-28] MEDS ORDERED: NEOSTIGMINE METHYLSULFATE 1 MG/ML 10ML VIAL IM ONE (11:57)
[2022-02-28] MEDS ORDERED: MIDAZOLAM HCL 1 MG/ML 2ML VIAL IV ONE (11:57)
[2022-02-28] MEDS ORDERED: DEXAMETHASONE SOD INJ 4 MG/ML VIAL IV ONE (11:57)
[2022-02-28] MEDS ORDERED: ONDANSETRON INJ 2 MG/ML 2 ML VIAL IV ONE (11:57)
[2022-02-28] MEDS ORDERED: LIDOCAINE 2% 2 ML VIAL/AMP(20MG/ML) INFIL ONE (11:57)
[2022-02-28] MEDS ORDERED: HYDROmorphone INJ 2 MG/ML SYR/VIAL IV ONE (11:57)
[2022-02-28] MEDS ORDERED: GLYCOPYRROLATE 0.2 MG/ML VIAL IM ONE (11:57)
[2022-02-28] MEDS ORDERED: BUPIVACAINE/EPINEPHRINE 0.25% 1:200,000 30 ML VIAL ONE (12:54)
[2022-02-28] MEDS ORDERED: ceFAZolin 330 MG/ML 1 GM VIAL ONE (12:54)
[2022-02-28] MEDS ORDERED: ePHEDrine sulfate 50 MG/ML AMP IV PRN (13:28)
[2022-02-28] MEDS ORDERED: ATROPINE SULFATE 0.1 MG/ML 10ML SYR IV PRN (13:28)
[2022-02-28] MEDS ORDERED: ONDANSETRON INJ 2 MG/ML 2 ML VIAL IV PRN ×2 (13:28→16:16)
[2022-02-28] MEDS ORDERED: HYDROmorphone INJ 2 MG/ML SYR/VIAL IV PRN (13:28)
--- NOTE | 2022-02-28 13:28 | Anesthesiology Consultation ---
Date of Service February 28, 2022 Assessment & Plan Chart Review Chart Review: Acceptable Risk for Surgery and Patient NOT seen in Pre Admission Testing Consults Requested none ASA ASA2 Proposed Anesthesia Anesthesia Type: General Risk / Benefits Reviewed With: PT / POA / Parent / Guardian, Accepts Plan and Informed Consent Obtained History Surgery Operation Date: 02/28/22 11:55 Proposed Procedures p L5-S1 Decompression Fusion, Spinal Cord Monitoring - Evaristo Santiago, Height/Weight Height: 5 ft 10 in Weight: 94.7 kg Allergies Allergy/AdvReac Type Severity Reaction Status Date / Time No Known Allergies Allergy Verified 02/13/22 13:43 Medications Home Medications Medication Instructions Recorded Confirmed Last Taken lorazepam 0.5 mg tablet (Ativan) 0.5 mg PO DAILY PRN 03/14/19 02/27/22 Unknown tramadol 50 mg tablet 50 mg PO BID 02/13/22 02/27/22 02/27/22 04:30 gabapentin 300 mg capsule 300 mg PO TID 02/27/22 02/27/22 02/26/22 10:00 oxycodone-acetaminophen 5 mg-325 1 tab PO Q6 PRN 02/27/22 02/27/22 02/26/22 22:30 mg tablet Active Medications Generic Name Dose Route Start Last Admin Trade Name Freq PRN Reason Stop Dose Admin Acetaminophen 1,000 mg 02/27/22 13:53 02/28/22 01:55 Acetaminophen 500 Mg Tab PO 03/29/22 13:52 1,000 mg Q8H PRN Administration MILD Pain Scale 1,2,3 & Pre PT Hydromorphone HCl 0.5 mg 02/27/22 13:53 02/28/22 06:09 Hydromorphone Inj 0.5 Mg/0.5 Ml Syr IV 03/13/22 13:52 0.5 mg Q3H PRN Administration MOD pain (scale 4-6) & Pre PT Hydromorphone HCl 1 mg 02/27/22 13:53 02/28/22 09:29 Hydromorphone Inj 1 Mg/Ml Syringe IV 03/13/22 13:52 1 mg Q3H PRN Administration severe pain (scale 7-10) Cefazolin Sodium 2,000 mg in 15 mls @ 3.75 mls/min 02/28/22 06:00 02/28/22 13:08 Ancef 2000mg IV 03/01/22 05:59 3.75 mls/min PREOP MALCOLM Administration Protocol Lactated Ringer's 1,000 mls @ 100 mls/hr 02/27/22 13:53 02/28/22 09:29 Lr IV 03/29/22 13:52 100 mls/hr .Q10H MALCOLM Administration Lorazepam 0.5 mg 02/27/22 13:53 02/27/22 20:07 Lorazepam 0.5 Mg Tab PO 03/29/22 13:52 0.5 mg Q8H PRN Administration sedation/anxiety Ondansetron HCl 4 mg 02/27/22 13:53 02/28/22 09:33 Ondansetron Inj 2 Mg/Ml 2 Ml Vial IV 03/29/22 13:52 4 mg Q6H PRN Administration Nausea &/or Vomiting NPO Date Last Intake of Fluids: 02/27/22 Time Last Intake of Fluids: 00:00 Date Last Intake of Solids: 02/27/22 Time Last Intake of Solids: 18:00 Past Medical History Medical History (Updated 02/27/22 @ 10:30 by Evaristo Santiago DO) Cancer Ocular s/p surgical intervention Radiation plaque therapy done (2011) Diverticula, colon History of COVID-19 Dx 05/2021 Symptoms at time: fatigue, cough > resolved Lower back pain Ventricular bigeminy Intermittent remote dx several years ago with no recent recurrence (incidental finding, asymptomatic), discharged from cardio- advised to f/u PRN, no current issues Exercise / Class Metabolic Activity II 4-5 Yardwork/Stairs/Walk up hill Past Family History Family History Other Family history non-contributory Past Surgical History Surgical History H/O colonoscopy H/O endoscopy H/O vasectomy History of tonsillectomy and adenoidectomy Hx of appendectomy Past Anesthesia History No Hx of Anesthesia Complications and No Family Hx of Anesthesia Complications History of PONV No Hx of PONV and No Hx of Motion Sickness Social History Smoking Status: Never smoker Hx Alcohol Use: No Hx Substance Use: No substance use type: does not use Physical Exam Vital Signs Last Vital Signs Temp 37 C 02/28/22 10:56 Pulse 65 02/28/22 10:56 Resp 18 02/28/22 10:56 BP 147/96 H 02/28/22 10:56 Pulse Ox 99 02/28/22 10:56 ENMT Mouth: no dentition abnormality Thyromental Distance: > or= 3.5 Finger Breadths Mallampati Class: II Neck normal visual inspection Respiratory normal respiratory effort Auscultation: lungs clear to auscultation bilaterally Cardiovascular Rate/Rhythm: regular rate and regular rhythm Psychiatric Orientation: alert Testing Laboratory Results 02/27/22 08:55 02/27/22 08:55 Urine Color Yellow 02/27/22 20:50 Urine Appearance Clear (Clear) 02/27/22 20:50 Urine pH 6.0 (4.5-7.5) 02/27/22 20:50 Ur Specific [place] 1.013 (1.000-1.030) 02/27/22 20:50 Urine Protein Negative (Negative) 02/27/22 20:50 Urine Glucose (UA) Negative (Negative) 02/27/22 20:50 Urine Ketones Negative (Negative) 02/27/22 20:50 Urine Nitrite Negative (Negative) 02/27/22 20:50 Ur Leukocyte Esterase Negative (Negative) 02/27/22 20:50
[2022-02-28] MEDS ORDERED: FLOSEAL HEMOSTATIC MATRIX 10ML TOP ONE (13:48)
--- NOTE | 2022-02-28 15:02 | Operative Report ---
Post Operative Report Pre & Post Diagnosis Operation Date: 02/28/22 11:55 Pre-Op Diagnosis: Lumbar Disc Herniation with Radiculopathy Post-Op Diagnosis: Lumbar Disc Herniation with Radiculopathy I identified the patient and participated in the time-out.: Yes Procedure Operation Date: 02/28/22 11:55 Actual Procedures #1 lumbar decompression with bilateral medial facetectomies and foraminotomies L4-L5 L5-S1. #2 posterior spinal fusion L5-S1. #3 placement posterior instrumentation L5-S1. #4 interbody fusion L5-S1. #5 placement of Spira 14 x 26 mm cage at L5-S1. #6 placement locally harvested morselized autograft in the posterior gutters. #7 placement of I factor combined with V toss in interbody space and posterior lateral gutters. Surgeon Evaristo Santiago, DO Mechanical Pencils Assembler Cb Bond Estimated Blood Loss 150 Findings Consistent with Post-Op Diagnosis Specimens None Indications This is a 41-year-old male who presents with marked neurologic decline and evidence of worsening disc herniation and neuroforaminal disease. Subsequent is here for urgent decompression fusion. Description of Procedure Patient was met with identified informed consent obtained. Patient was then taken to the operative suite underwent intubation placed in a prone position the Ameya table top Vinod frame. All bony prominences well-padded eyes inspected to ensure no external pressure placed upon the. This point the lumbar spine was prepped and draped no sterile fashion. Sharp dissection with the assistance of Bovie cautery performed down to and exposing the lamina and transverse processes of L5 and the sacral ala. Bilaterally. From a caudal cephalad fashion complete laminectomy L5 partial laminectomy of L4 was performed including bilateral medial facetectomies and foraminotomies. Evidence of significant conjoined root on the left was noted. I identified free disc fragments within the axilla of the S1-S2 levels. The area was explored all fragments addressed. Pedicle screws were then placed in L5 and S1 levels bilaterally with assistance of fluoroscopy and I had to perform a complete facetectomy L5-S1 on the right to safely find a window for a transforaminal approach. Complete discectomy was then performed and the endplates curetted to subcortical bleeding bone. A 14 x 26 mm Spira cage filled with I factor was tapped in position. The rods were then compressed locked in final position bilaterally. The transverse processes of L5 and sacral ala burred to subcortical bleeding bone. I factor combined with V toss and locally harvested morselized autograft was then placed in the posterior gutters. 15 round DANIEL drain inserted. The incision was then closed with 1 Vicryl in the fascia 2-0 Vicryl subcutaneously and 4 Monocryl for final skin closure. Steri-Strip sterile dressings placed. Patient waken taken to PACU stable condition. Please note spinal cord monitoring was utilized at the procedure no changes noted. Lastly Cb Bond was present out the entire surgery involved in patient positioning complex portions of the surgery and fascial closure. I attest to the content of the Intraoperative Record and any orders documented therein. Any exceptions are noted below.
[2022-02-28] MEDS: fentaNYL citrate 100 MCG/2 ML VIAL IV PRN ×2 (15:23→15:36)
--- NOTE | 2022-02-28 15:38 | Fluoroscopy Report ---
FL lumbar spine 2-3V HISTORY: 41 years-old Male L5-S1 DECOMP/FUSION status post L5-S1 decompression COMPARISON: MRI lumbar spine 02/27/2022 TECHNIQUE: 2 spot fluoroscopic images of the lumbar spine were obtained utilizing 23.6 seconds fluoro scopy time FINDINGS: Status post laminectomy with posterior interbody marizol and screw fusion and discectomy at L5-S1. The marquez rdware appears intact. No acute fracture or unexpected opaque foreign body identified. IMPRESSION: Fluoroscopic assistance as above. ACT 112: Negative or not required by law. The above report was generated using voice recognition software. It may contain grammatical, syntax o r spelling errors. Electronically signed by: Leland Klein M.D. 02/28/2022 3:36 PM
--- NOTE | 2022-02-28 15:55 | Anesthesiology Progress Note ---
Date of Service February 28, 2022 Anesthesia Post Procedure Vital Signs Vital Signs: Temp Pulse Pulse Resp BP BP Pulse Ox 02/28/22 15:45 70 12 140/85 92 02/28/22 15:35 75 15 134/85 95 02/28/22 15:25 69 12 142/88 H 98 02/28/22 15:16 36.2 C L 89 14 151/95 H 95 02/28/22 10:56 37 C 65 18 147/96 H 99 02/28/22 07:26 36.7 C 58 L 16 128/81 94 02/27/22 21:14 36.9 C 62 20 150/88 H 98 Pain Intensity Back: Pain Intensity: 4 Transfer of Care Handoff Completed per policy Notes Mental Status: alert / awake / arousable Patient Amnestic to Procedure: Yes Nausea / Vomiting: adequately controlled Pain: adequately controlled Airway Patency, RR, SpO2: stable & adequate BP & HR: stable & adequate Hydration State: stable & adequate Anesthetic Complications: no major complications apparent
[2022-02-28] MEDS ORDERED: MAGNESIUM HYDROXIDE SUSP 30 ML UDC PO PRN (16:16)
[2022-02-28] MEDS ORDERED: LORazepam 0.5 MG TAB PO PRN (16:16)
[2022-02-28] MEDS ORDERED: PROMETHAZINE HCL 12.5 MG in SODIUM CHLORIDE 0.9% 50 ML IV PRN (16:16)
[2022-02-28] MEDS ORDERED: DO NOT ADMINISTER PNEUMOCOCCAL VACCINE PRN (16:16)
[2022-02-28] MEDS ORDERED: HYDROmorphone INJ 1 MG/ML SYRINGE IV PRN (16:16)
[2022-02-28] MEDS ORDERED: NALOXONE HCL 0.4 MG/1 ML VIAL/CARP IV PRN (16:16)
[2022-02-28] MEDS ORDERED: FAMOTIDINE 20 MG TAB PO PRN (16:16)
[2022-02-28] MEDS ORDERED: DO NOT ADMINISTER FLU VACCINE PRN (16:16)
[2022-02-28] MEDS ORDERED: hydrOXYzine HCl 25 MG TAB PO PRN (16:16)
[2022-02-28] MEDS ORDERED: SOD PHOSPHATE/SOD BIPHOSPHATE ENEMA 132 ML BTL PR PRN (16:16)
[2022-02-28] MEDS ORDERED: ACETAMINOPHEN 1,000 MG/100 ML VIAL IV PRN (16:16)
[2022-02-28] MEDS ORDERED: METOCLOPRAMIDE HCL INJ 5 MG/ML 2 ML VIAL IV PRN (16:16)
[2022-02-28] MEDS ORDERED: diphenhydrAMINE Capsule 25 MG CAP PO PRN (16:16)
[2022-02-28] MEDS ORDERED: ONDANSETRON 4 MG OD TAB PO PRN (16:16)
[2022-02-28] MEDS ORDERED: ALUMINUM/MAGNESIUM SUSP 30 ML UDC PO PRN (16:16)
[2022-02-28] MEDS ORDERED: bisacodyL 10 MG SUPP PR PRN (16:16)
[2022-02-28] MEDS ORDERED: LORazepam 0.5 MG in SYRINGE 0.25 ML IV PRN (16:16)
[2022-02-28] MEDS ORDERED: ACETAMINOPHEN 500 MG TAB PO PRN (16:16)
[2022-02-28] MEDS: GABAPENTIN 300 MG CAP PO SCH (21:22)
[2022-02-28] MEDS: ceFAZolin 2000MG 2,000 MG/15 ML SYR IV SCH (21:22)
[2022-02-28] MEDS: DOCUSATE SODIUM/SENNA 50/8.6MG TAB PO SCH (21:22)
[2022-03-01] MEDS: HYDROmorphone INJ 0.5 MG/0.5 ML SYR IV PRN ×3 (01:48→10:51)
[2022-03-01] MEDS: ceFAZolin 2000MG 2,000 MG/15 ML SYR IV SCH (04:37)
[2022-03-01] MEDS: POLYETHYLENE (MIRALAX) 17 GM PACK PO SCH ×5 (06:11→22:41)
[2022-03-01 07:33] LABS: Eosinophils # (auto) 0.03 K/uL (0-0.5); Eosinophils % (auto) 0.3 %; Hematocrit (blood only) 40.2 % (42-52); Immature Granulocytes # (auto) 0.02 K/uL (0.00-0.02); Immature Granulocytes % (auto) 0.2 %; Lymphocytes # (auto) 1.13 K/uL (1.2-3.4); Lymphocytes % (auto) 9.9 %; Mean Corpuscular Hemoglobin 28.9 pg (25-34); Mean Corpuscular Hgb Conc 34.8 g/dL (32-36); Mean Corpuscular Volume 82.9 fL (80-100); Mean Platelet Volume 10.5 fL (7.4-10.4); Monocytes # (auto) 0.82 K/uL (0.11-0.59); Monocytes % (auto) 7.2 %; Neutrophils # (auto) 9.37 K/uL (1.4-6.5); Neutrophils % (auto) 82.4 %; Platelet Count 233 K/uL (130-400); RDW Coefficient of Variation 12.6 % (11.5-14.5); RDW Standard Deviation 38.1 fL (36.4-46.3); Red Blood Count 4.85 M/uL (4.7-6.1); White Blood Count 11.37 K/uL (4.8-10.8)
[2022-03-01 07:49] LABS: BUN Creatinine Ratio 14.7 (10-20); Calcium 9.2 mg/dl (8.5-10.1); Creatinine Clr Calc Pharmacy 107.9 ml/min; Est GFR (African American) 103.9 ml/min; Est GFR (Non-African American) 89.6 ml/min; Potassium 4.2 mmol/L (3.5-5.1)
[2022-03-01] MEDS: GABAPENTIN 300 MG CAP PO SCH ×3 (09:00→21:18)
[2022-03-01] MEDS: dexAMETHasone 6 MG in SYRINGE 0 ML IV SCH (09:00)
--- NOTE | 2022-03-01 11:02 | Orthopedic Progress Note ---
Date of Service March 01, 2022 Assessment & Plan (1) Lumbar disc herniation with radiculopathy: Plan: At this time continue physical therapy monitor his DANIEL output hopefully discharge home in the next few days. Admission and Anticipated Discharge Date Admission Date: February 27, 2022 Subjective Patient's back pain is controlled leg symptoms markedly improved Physical Exam Physical Exam: Patient is ambulating well. Has good strength testing. Appears comfortable. Results & Data ([facility]) Vital Signs (Past 12 Hours) Vital Signs Temp Pulse Resp BP Pulse Ox 03/01/22 07:56 37.1 C 90 18 124/75 96 03/01/22 03:32 36.8 C 85 18 116/73 92
[2022-03-01] MEDS: traMADol HCL 50 MG TABLET PO PRN (14:10)
[2022-03-01] MEDS: oxyCODONE HCL IR 5 MG TAB (IMMEDIATE RELEASE) PO PRN (21:17)
[2022-03-01] MEDS: DOCUSATE SODIUM/SENNA 50/8.6MG TAB PO SCH (21:20)
[2022-03-02] MEDS: oxyCODONE HCL IR 5 MG TAB (IMMEDIATE RELEASE) PO PRN (02:31)
[2022-03-02] MEDS: POLYETHYLENE (MIRALAX) 17 GM PACK PO SCH (06:00)
--- NOTE | 2022-03-02 08:33 | Discharge Summary ---
Date of Service March 02, 2022 Admission HPI Per Admitting Provider This is a 41-year-old male that presents with marked decline in status over the past week. He does have known lumbar disc herniation and neuroforaminal disease at L5-S1 with a left-sided radiculopathy. He was potentially scheduled for surgery. He states for the past week he has been unable to ambulate and is essentially been bedridden. Is been unable to work. Pain is described involving the bilateral buttocks radiating to the groin. Extensive left lower extremity to left lateral foot. He notes weakness with weightbearing and ambulation affecting left lower extremity. He describes urinary retention that has been present over the past week. He denies any significant trauma fall or event over the past several weeks. His pain is markedly uncontrolled at home. Admission Exam (Per Admitting) Constitutional WD/WN, vitals as above average body habitus and + in distress Eyes normal visual vitale by confrontation Neck normal visual inspection Respiratory normal respiratory effort Cardiovascular Extremities: normal capillary refill Gastrointestinal (Abdomen) Inspection/Auscultation: abdomen normal to inspection Musculoskeletal Spine: + pain with thoraco-lumbar ROM Extremities: extremities normal to inspection Skin no rashes, warm and dry Neurologic normal touch/pain/proprioception and moves all extremities Psychiatric A+Ox3, euthymic affect Apperance: appropriately dressed Eye Contact: good eye contact Discharge Data Consultations 02/27/22 10:01 ED Decision to Admit Stat Procedures Performed Operation Date: 02/28/22 11:55 Actual Procedures p L5-S1 Decompression Fusion, Spinal Cord Monitoring(Not Applicable) - Evaristo Santiago DO Hospital Course (1) Lumbar disc herniation with radiculopathy: Patient is being discharged home on postoperative day 2. Leg pain has resolved. Back pain is controlled. He has had an uneventful hospital course. He had a bowel movement. Lab values have been stable. He is making great p rogress in physical therapy. Discharge Instructions ACTIVITY RECOMMENDATIONS: SELF CARE INSTRUCTIONS AFTER THORACIC/LUMBAR FUSIONS 1. You may walk to your tolerance. It is good exercise for your legs and back. Expect some back and intermittent leg aches and pains. 2. You may perform "counter-top" level activities (make a sandwich, lucia with a project, etc.). 3. No bending or lifting of more than 10 pounds or back twisting of any nature (roll like a log when turning in bed). 4. You may ride in a car for 20-30 minutes at a time. No driving until after your first visit with your doctor. 5. Frequent changes of position and restricting sitting to 30 minutes at a time will help limit the amount of back spasms and stiffness you may experience. 6. You may discontinue the use of ambulatory aids (cane, crutches, etc.) once your strength and confidence allow. 7. You may powertrain design engineer the shower and let water strike your incision when you arrive home at least once daily. Do not take a tub bath, sit in a hot tub or go into a swimming pool until after your first recheck in the office. SPECIAL CARE INSTRUCTIONS: VERY IMPORTANT TO READ AND REVIEW A. Your surgical incision has been closed with a cosmetic suture under the skin that will dissolve in about 6 weeks. In 14 days, you can use a pair of clean scissors and cut the suture that is left outside of the skin at the ends of your incision. 1. The small skin tapes can be removed 7 days after surgery if they have not fallen off by that point. 2. You may keep the wound open to air as much as possible to promote healing after post-op day number 5 unless told otherwise by your doctor. 3. If you think the wound looks like it is becoming infected (redness or worsening drainage) and/or you are experiencing fever, chill or worsening back pain and muscle spasms, contact the office so that we may evaluate you as soon as possible. B. Complications are uncommon, but please contact us if you have any signs or symptoms of: 1. wound infection (fever higher than 102.5 degrees F, redness, separation of wound, drainage, or increasing pain from the incision) 2. blood clots in legs (pain, swelling, redness and warmth in legs) 3. urinary tract infection (fever higher than 102.5 degrees F, burning upon urination or increased frequency of urination) 4. nerve problems (inability to walk on your toes or heels, numbness, loss of bowel or bladder control) 5. any other symptoms that concern you C. Please call the office at if you have any concerns or questions about your operation or recovery. D. No smoking! Smoking drastically decreases the chance of a solid fusion. E. Do not take any anti-inflammatory medications (Indocin, Advil, Motrin, Aspirin, Naprosyn, etc.) as these may inhibit the chance of a solid fusion. Tylenol is okay to take for pain. MANAGING PAIN AFTER SPINAL SURGERY 1. Narcotic medication is intended for short-term use and will be provided for surgical pain. Surgical pain usually lasts for a period of 4-6 weeks. Narcotic medication includes Percocet, Vicodin, Darvocet, Tylenol #3 or Lortab. 2. Longer-term pain is more appropriately treated with non-narcotic medication such as Tylenol ES. 3. Muscle spasm is not appropriately treated with narcotics. Muscle relaxers such as Soma, Flexeril or Skelaxin can be used along with Tylenol ES. 4. Remember that we all live with some "aches and pains". This is not unusual or uncommon after an injury or as we get older. a. Back pain is expected and may include muscle spasms for 4 to 6 weeks after surgery. The pain should gradually improve. If the pain worsens for no apparent reason, please contact the office. b. Intermittent leg pain may also be experienced and should not be concerned about unless it worsens for no apparent reason. If so, please contact the office. 5. We will provide appropriate medication within the normal guidelines of their prescribed use. We will also be very cautious and aware of potential abuse and extended duration of patients' medication needs. a. Pain medications are for your comfort and to assist with sleep and rest so that the tissue can heal. They are not provided in order to return to normal activity and should not be used through the day. To do so or worsening pain at night can result from ongoing tissue damage and development of tolerance to the prescribed medicine. 6. Please allow 2-3 days to process refills. Prescriptions will not be mailed but must be picked up at the office. FOLLOW UP VISIT: Keep your scheduled follow-up appointment. Any questions, please call the office at .
[2022-03-02] MEDS: GABAPENTIN 300 MG CAP PO SCH (08:35)
[2022-03-02] MEDS: dexAMETHasone 6 MG in SYRINGE 0 ML IV SCH (08:35)
[2022-03-02] MEDS: traMADol HCL 50 MG TABLET PO PRN (10:59)
== END 2022-03-02 11:58 | disposition home or self-care (01) | DRG 455 ==
LOC: ED 08:26 → 3W 10:02
DX: Z01.818 Encounter for other preprocedural examination; M51.16 Intervertebral disc disorders with radiculopathy, lumbar region; Z01.812 Encounter for preprocedural laboratory examination; Z86.16 Personal history of COVID-19; Z20.822 Contact with and (suspected) exposure to COVID-19; Z01.810 Encounter for preprocedural cardiovascular examination; R00.1 Bradycardia, unspecified